=== PATIENT | female | born 1950 | race Caucasian/White ===

== ENCOUNTER → 2024-04-11 | Outpatient (CLI) | payer MEDICARE, BC, SELFPAY ==
[2024-04-11 09:03] LABS: Basophils # (Auto) 0.1 Thou/mm3 (0.0-0.2); Basophils % (Auto) 1 % (0-2.5); Eosinophils # (Auto) 0.3 Thou/mm3 (0.0-0.5); Eosinophils % (Auto) 4 % (0-10); Hematocrit 40.8 % (36.0-46.0); Hemoglobin 13.4 g/dL (12.0-16.0); Immature Granulocytes % (Auto) 1 % (0-0); Immature Granulocytes Auto 0.06 Thou/mm3 (0.00-0.00); Lymphocytes # (Auto) 1.8 Thou/mm3 (1.0-4.8); Lymphocytes % (Auto) 19 % (10-50); Mean Corpuscular HGB Conc 32.8 g/dl (31.0-37.0); Mean Corpuscular Hemoglobin 29.2 pg (25.0-35.0); Mean Corpuscular Volume 89 fL (80-100); Monocytes # (Auto) 0.8 Thou/mm3 (0.0-0.8); Monocytes % (Auto) 8 % (0-12); Neutrophils # (Auto) 6.4 Thou/mm3 (1.8-7.7); Neutrophils % (Auto) 67 % (37-80); Nucleated Red Blood Cell % 0 /100 WBC (0); Platelet Count 261 Thou/mm3 (140-440); RDW Standard Deviation 47.8 fL (36.4-46.3); Red Blood Count 4.59 Miln/mm3 (4.00-5.20); White Blood Count 9.5 Thou/mm3 (3.6-11.0)
[2024-04-11 09:17] LABS: Alanine Aminotransferase 22 U/L (10-49); Albumin, Serum 4.7 gm/dL (3.4-4.8); Albumin/Globulin Ratio 2.1 (1.2-2.2); Alkaline Phosphatase 55 U/L (46-116); Anion Gap 7 (7-16); Aspartate Amino Transferase 22 U/L (0-34); BUN/Creatinine Ratio 21 Ratio (12-20); Bilirubin,Total 1.1 mg/dL (0.3-1.2); Blood Urea Nitrogen 19 mg/dL (9-23); Calcium 9.7 mg/dL (8.3-10.6); Calcium (Corrected) 9.7 mg/dL (8.5-10.1); Carbon Dioxide 29.1 mMol/L (20.0-31.0); Cardiac Risk Estimate 3.2 RATIO (3.7-5.6); Chloride 101 mMol/L (98-107); Cholesterol 165 mg/dL (132-200); Creatinine (Component) 0.9 mg/dL (0.6-1.3); Globulin 2.2 gm/dL (2.3-3.5); Glucose 101 mg/dL (74-106); HDL Cholesterol 52 mg/dL (40-60); LDL Cholesterol,Calculated 93 mg/dL (0-130); Osmolality,Calculated 276 (275-295); Potassium 4.1 mMol/L (3.4-5.1); Sodium 137 mMol/L (136-145); Total Protein 6.9 gm/dL (5.7-8.2); Triglycerides 102 mg/dL (30-150); eGFR > 60 See Note
[2024-04-11 09:55] LABS: Collection Type, Urine Clean Catch
[2024-04-11 10:12] LABS: Bilirubin,Urine Negative (Negative); Blood,Urine Negative (Negative); Clarity,Urine Clear (Clear/Hazy); Color,Urine Yellow (Lt Yel-Yel); Glucose, Urine Negative (Negative); Ketones,Urine Negative (Negative); Leukocyte Esterase,Urine Negative (Negative); Nitrite,Urine Negative (Negative); Protein,Urine Negative (Neg - Trace); RBC,Urine 2 /hpf (0-3); Specific Gravity,Urine 1.013 (1.001-1.035); Squamous Epithelial Cell,Urine < 1 /hpf (0-5); Urobilinogen,Urine Negative mg/dL (0.0-1.0); WBC,Urine 1 /hpf (0-5)
== END | disposition home or self-care (01) ==
PROVIDERS: PCP Internal Medicine Cardiovascular Disease; Referring Provider Internal Medicine; Visit Provider Internal Medicine
DX: I10 Essential (primary) hypertension (principal); E78.5 Hyperlipidemia, unspecified
CPT/HCPCS: 36415; 80053; 80061; 81001; 85025

== ENCOUNTER → 2024-04-12 | Outpatient (CLI) | payer MEDICARE, BC, SELFPAY ==
--- NOTE | 2024-04-12 14:00 | XR_ITS ---
Examination: Screening digital mammography, bilateral Computer aided detection 3-D breast Tomosynthesis, bilateral Date and time of exam: April 12, 2024 1412 hours Compared to mammograms dating to May 23, 2012 Indication: Screening Technique: Nonmagnified MLO, CC views of the breasts to been obtained, reconstructed from 3-D Tomosynthesis images. R2 computer aided detection program utilized for evaluation of suspicious masses and/or abnormal calcifications. 3-D Tomosynthesis images obtained. Findings: Scattered areas of fibroglandular density Benign calcifications No interval suspicious masses Impression: BI-RADS category II: Benign Findings. Recommend 1 year follow-up mammogram.
--- NOTE | 2024-04-12 14:20 | XR_ITS ---
Examination: Bone densitometry Date and time of exam:April 12, 2024 at 1425 hours INDICATIONS: Menopause age 52, family history mother hip fracture, personal history osteopenia Technique: Lumbar spine and hip total bone mineralization values of an calculated. Peak reference and age match control results have been displayed. Findings: Lumbar spine total bone mineralization is1.312 gm/cm2. This is 2.4 standard deviations above peak reference. This is 4.8 standard deviations above age-matched controls. Hip total bone mineralization is 0.820 gm/cm2 This is 1.0 standard deviations below peak reference. This is 0.7 standard deviations above age-matched controls Impression: There is normal mineralization based on lumbar spine measurements. There is normal mineralization based on hip measurements Lumbar mineralization is increase 7.3% compared with April 29, 2020 Hip mineralization is increased 4.3% compared with April 29, 2020
== END | disposition home or self-care (01) ==
LOC: CDIM 14:03
PROVIDERS: Referring Provider Internal Medicine; Visit Provider Internal Medicine
DX: Z12.31 Encounter for screening mammogram for malignant neoplasm of breast (principal); R92.323 Mammographic fibroglandular density, bilateral breasts; R92.1 Mammographic calcification found on diagnostic imaging of breast; M81.0 Age-related osteoporosis without current pathological fracture
CPT/HCPCS: 77063; 77067; 77080

== ENCOUNTER 2024-06-19 07:58 | Emergency (ER) | payer MEDICARE, BC, SELFPAY ==
[2024-06-19 07:59] VITALS: BMI 33.8
--- NOTE | 2024-06-19 08:03 | EKG_ITS ---
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
[2024-06-19 08:14] VITALS: BP 155/80; PULSE 112; RESP 19; TEMP 36.7; O2SAT 95
[2024-06-19 08:15] VITALS: BMI 33.6
--- NOTE | 2024-06-19 08:16 | XR_ITS ---
Examination: AP chest single view TECHNIQUE: Sitting AP portable chest single view Exam date and time: June 19, 20242030 hours INDICATIONS: Onset chest pain today. FINDINGS: Prosthetic aortic valve No significant cardiac enlargement Mild vascular congestion Accentuation basilar bronchovascular markings No lobar pneumonia Prominent osteopenia IMPRESSION: Bronchitis pattern Mild vascular congestion
--- NOTE | 2024-06-19 08:34 | PD.EDADULT ---
ED General RME/HPI General Chief complaint: General Adult/Misc Complain Stated complaint: HIGH SHAINA B/P SINCE YESTERDAY Time Seen by Provider: 06/19/24 09:10 Arrival date/time: 06/19/24 07:58 RME / HPI RME / HPI narrative: Patient is a 74-year-old female with past medical history of aortic valve replacement, afib on warfarin, hypertension, hyperlipidemia, JONH, asthma, and COPD who presents to the ED on 06/19/2024 with a chief complaint of shakiness starting yesterday and also this morning. She has never had a prior episode of this before. Patient follows with Dr. Palma for her warfarin checks and last Wednesday on 06/12 her INR was 1.9, so she was taking an increased dose of warfarin for the past week and felt that her blood was too thin. She was told today that her INR was now 3.2 so she did not take a dose of warfarin yet. Last dose was 5 mg yesterday. Patient otherwise is denying any chest pain, shortness of breath, fever, chills, sweats, nausea, vomiting, or urinary symptoms. At the time of main ED evaluation patient states her shakiness is already resolving. complaint: shakiness Onset (ago): day(s) Consistency: now resolved Related Data Home Medications ?Medication ?Instructions ?Recorded ?Confirmed ezetimibe 10 mg-simvastatin 20 mg 1 tab PO HS 05/26/22 05/26/22 tablet furosemide 40 mg tablet 40 mg PO QDAY 05/26/22 05/26/22 meclizine 25 mg tablet 25 mg PO HS 05/26/22 05/26/22 metoprolol succinate 100 mg 100 mg PO QDAY 05/26/22 05/26/22 tablet,extended release 24 hr potassium chloride 10 mEq 10 meq PO QDAY 05/26/22 05/26/22 tablet,extended release(part/cryst) warfarin 5 mg tablet 5 mg PO QDAY 05/26/22 05/26/22 aspirin 81 mg capsule 81 mg PO DAILY 05/27/22 05/27/22 Allergies Allergy/AdvReac Type Severity Reaction Status Date / Time adhesive tape Allergy Severe Rash Verified 06/19/24 08:01 propoxyphene Allergy Severe Rash Verified 06/19/24 08:01 Past Medical History Past Medical History Comments PMH COMMENT: Past Medical History: Aortic valve replacement, afib on warfarin, hypertension, hyperlipidemia, JONH, asthma, and COPD Family History: Noncontributory Surgical History: Aortic valve replacement, right knee replacement, right shoulder surgery Social History: Denies history of smoking, denies current alcohol use, denies recreational drug use Current Medications: Furosemide 40 mg qday, metoprolol succinate 100 mg qday, ezetimibe-simvastatin, meclizine 25 mg HS, potassium chloride 10 mEq qday, daily nebulizer, albuterol (Source: Patient medication list) Allergies: Propoxyphene, adhesive tape ED Exam Narrative Physical exam: Physical Exam General: Awake and in no acute distress. Conversational and non-toxic appearing. HEENT: Normocephalic, atraumatic, mucous membranes moist. Chronically disconjugated gaze. Heart: Regular rate and rhythm, no murmurs. Lungs: Clear to auscultation with no wheezing or crackles. Abdomen: Soft, nondistended, nontender, positive bowel sounds. ?No guarding or rebound tenderness. Neurologic: Alert and oriented x3, no gross neurological deficit, and patient able to move all 4 extremities. Extremities: No edema. Skin: Left medial ankle with nonblanching nonraised macular erythematous rash. Course Quality Measures none Orders Category Date Time Status Cell Biologist NOW Care 06/19/24 08:16 Completed EKG (ED ONLY) *Do not use* NOW Care 06/19/24 08:[address] head/brain wo con Stat Exams 06/19/24 10:34 Completed EKG (ED Only) Stat Exams 06/19/24 08:03 Draft XR chest 1V portable Stat Exams 06/19/24 08:16 Completed B-Type Natriuretic Peptide Stat Lab 06/19/24 08:50 Completed CBC Stat Lab 06/19/24 08:50 Completed Comprehensive Metabolic Panel Stat Lab 06/19/24 08:50 Completed Magnesium Stat Lab 06/19/24 08:50 Completed Partial Thromboplastin Time Stat Lab 06/19/24 08:50 Completed Prothrombin Time with INR Stat Lab 06/19/24 08:50 Completed Troponin I Stat Lab 06/19/24 08:50 Completed Vital Signs Vital signs: Vital Signs Temperature 98.1 F 06/19/24 08:14 Pulse Rate 112 H 06/19/24 08:14 Respiratory Rate 19 06/19/24 08:14 Blood Pressure 155/80 H 06/19/24 08:14 Pulse Oximetry (%) 95 06/19/24 08:14 Oxygen Delivery Method Room Air 06/19/24 08:14 Procedures -ED EKG Interpretation #1: Date of EK06/19/24 Time of EK:11 Rate: 105 Interpretation: Interpreted by me EKG Impression: Normal sinus rhythm and No acute ST-T changes MDM Patient data External records reviewed:: [facility] previous records Clinical information provided by:: patient Social determinants that could affect healthcare access:: none Patient has the following chronic illnesses:: As above How is presenting disease/condition affected by chronic disease/condition?: uneffected by Evaluation data The following diagnostics were reviewed and interpreted by me:: lab results, radiology exam(s) and EKG tracing(s) Lab and/or radiology exams considered but not ordered:: Ordered Interpretation Summary: INR is high at 3.2. Patient will need to continue holding warfarin for today. Contacted Dr. Palma's office regarding finding. They reported will follow up with patient. Medications Medications considered but not ordered:: None Medication administrations:: None Consultations Consultation(s) initiated? (list below): No Diagnosis Differential Diagnosis ED Complaint MDM: Infectious illness, low BP, orthostasis, shivering due to cold temperature Most likely diagnosis given after review of the tests above:: Shivering Admission Indicated Admission indicated?: not indicated Explain why admission is indicated or not indicated:: Patient stable for discharge home Admission Request Was there a request for admission?: No Disposition Plan Disposition Plan: Discharge Discharge Attestation Discharge Attestation: The patient and all family members were given an opportunity to ask questions and understood the discharge instructions. Discharge instructions specifically effects, indications for sooner follow up or return to the emergency department, and the expected course of current diagnosis. Patient condition: Stable Medical Decision Making MDM Narrative MDM Narrative: Patient presented with a chief complaint of isolated shaking/shivering without any other symptoms. Temperature on vital signs is normal. Lab studies including CBC, CMP, troponin within normal limits. BNP is mildly elevated at 161. No acute signs of heart failure exacerbation. PT is elevated at 32.5, INR is elevated at 3.2, APTT is elevated at 36.5. CT head without contrast is ordered to rule out possible brain bleed secondary to elevated warfarin level. CT is negative for acute bleed. Patient was stable to be discharged, instructed to hold warfarin for today. Called Dr. Palma's office regarding INR at 14:30, they will follow up with patient regarding resuming warfarin recommendations. Differential Diagnosis Differential Diagnosis: Infectious illness, low BP, orthostasis, shivering due to cold temperature Lab Data 06/19/24 08:50 06/19/24 08:50 Labs: Lab Results 06/19/24 Range/Units 08:50 WBC 6.8 (3.6-11.0) Thou/mm3 RBC 4.49 (4.00-5.20) Miln/mm3 Hgb 13.3 (12.0-16.0) g/dL Hct 40.0 (36.0-46.0) % MCV 89 (80-100) fL MCH 29.6 (25.0-35.0) pg MCHC 33.3 (31.0-37.0) g/dl RDW Std Deviation 44.4 (36.4-46.3) fL Plt Count 247 (140-440) Thou/mm3 Neut % (Auto) 73 (37-80) % Lymph % (Auto) 18 (10-50) % [place] % (Auto) 6 (0-12) % Eos % (Auto) 2 (0-10) % Baso % (Auto) 1 (0-2.5) % Neut # (Auto) 5.0 (1.8-7.7) Thou/mm3 Lymph # (Auto) 1.2 (1.0-4.8) Thou/mm3 [place] # (Auto) 0.4 (0.0-0.8) Thou/mm3 Eos # (Auto) 0.1 (0.0-0.5) Thou/mm3 Baso # (Auto) 0.1 (0.0-0.2) Thou/mm3 Immature Gran # (Auto) 0.03 H (0.00-0.00) Thou/mm3 Absolute Nucleated RBC 0.00 (0.00-0.00) Thou/mm3 Immature Gran % 0 (0-0) % Nucleated RBC % 0 (0) /100 WBC PT 32.5 H* (9.0-12.2) Seconds INR 3.2 H (0.9-1.3) APTT 36.5 H (22.0-36.0) Seconds Sodium 140 (136-145) mMol/L Potassium 3.5 (3.4-5.1) mMol/L Chloride 105 (98-107) mMol/L Carbon Dioxide 23.6 (20.0-31.0) mMol/L Anion Gap 11 (7-16) BUN 17 (9-23) mg/dL Creatinine 0.9 (0.6-1.3) mg/dL Estim Creat Clear Calc 54.9 L (>60) mL/min eGFR > 60 (60 - ) See Note BUN/Creatinine Ratio 19 (12-20) Ratio Glucose 164 H (74-106) mg/dL Calculated Osmolality 284 (275-295) Calcium 10.0 (8.3-10.6) mg/dL Corrected Calcium 10.0 (8.5-10.1) mg/dL Magnesium 2.0 (1.6-2.6) mg/dL Total Bilirubin 0.7 (0.3-1.2) mg/dL AST 26 (0-34) U/L ALT 18 (10-49) U/L Alkaline Phosphatase 53 (46-116) U/L Troponin I < 0.020 (0.0-0.045) ng/mL B-Natriuretic Peptide 161 H (0-100) pg/mL Total Protein 7.1 (5.7-8.2) gm/dL Albumin 4.8 (3.4-4.8) gm/dL Globulin 2.3 (2.3-3.5) gm/dL Albumin/Globulin Ratio 2.1 (1.2-2.2) Discharge Plan Plan Patient Disposition: HOME (Self Care) Patient condition on transfer: Stable Prescriptions/Referrals Prescriptions/Med Rec: No Action furosemide 40 mg tablet 40 mg PO QDAY Patient Comments: TAKE 1 TABLET BY MOUTH EVERY DAY metoprolol succinate 100 mg tablet extended release 24 hr 100 mg PO QDAY Patient Comments: TAKE 1 TABLET BY MOUTH EVERY DAY meclizine 25 mg tablet 25 mg PO HS warfarin 5 mg tablet 5 mg PO QDAY potassium chloride 10 mEq tablet,ER particles/crystals 10 meq PO QDAY Patient Comments: TAKE 1 TABLET BY MOUTH EVERY DAY IN THE MORNING ezetimibe-simvastatin 10-20 mg tablet 1 tab PO HS Patient Comments: TAKE 1 TABLET BY MOUTH EVERY DAY aspirin 81 mg Capsule 81 mg PO DAILY Referrals: Emmy Newell MD [Primary Care Provider] - In 1 week Problem List Clinical Impression: Shivers Patient/Caregiver Discharge Instructions Education Materials: What to Know When Taking?Warfarin Additional Instructions: Continue to hold warfarin 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 Return to the ED if symptoms worsen or recur. Print Language: Kazakh Stand Alone Forms: Estella Award Info., Patient Portal Info Letter
[2024-06-19 09:22] LABS: Basophils # (Auto) 0.1 Thou/mm3 (0.0-0.2); Basophils % (Auto) 1 % (0-2.5); Eosinophils # (Auto) 0.1 Thou/mm3 (0.0-0.5); Eosinophils % (Auto) 2 % (0-10); Hemoglobin 13.3 g/dL (12.0-16.0); Immature Granulocytes % (Auto) 0 % (0-0); Immature Granulocytes Auto 0.03 Thou/mm3 (0.00-0.00); Lymphocytes # (Auto) 1.2 Thou/mm3 (1.0-4.8); Lymphocytes % (Auto) 18 % (10-50); Mean Corpuscular HGB Conc 33.3 g/dl (31.0-37.0); Mean Corpuscular Hemoglobin 29.6 pg (25.0-35.0); Mean Corpuscular Volume 89 fL (80-100); Monocytes # (Auto) 0.4 Thou/mm3 (0.0-0.8); Monocytes % (Auto) 6 % (0-12); Neutrophils % (Auto) 73 % (37-80); Nucleated Red Blood Cell % 0 /100 WBC (0); Platelet Count 247 Thou/mm3 (140-440); RDW Standard Deviation 44.4 fL (36.4-46.3); Red Blood Count 4.49 Miln/mm3 (4.00-5.20); White Blood Count 6.8 Thou/mm3 (3.6-11.0)
[2024-06-19 09:42] LABS: B-Type Natriuretic Peptide 161 pg/mL (0-100)
[2024-06-19 09:44] LABS: INR 3.2 (0.9-1.3); Partial Thromboplastin Time 36.5 Seconds (22.0-36.0)
[2024-06-19 09:47] LABS: Alanine Aminotransferase 18 U/L (10-49); Albumin, Serum 4.8 gm/dL (3.4-4.8); Albumin/Globulin Ratio 2.1 (1.2-2.2); Alkaline Phosphatase 53 U/L (46-116); Anion Gap 11 (7-16); Aspartate Amino Transferase 26 U/L (0-34); BUN/Creatinine Ratio 19 Ratio (12-20); Bilirubin,Total 0.7 mg/dL (0.3-1.2); Blood Urea Nitrogen 17 mg/dL (9-23); Carbon Dioxide 23.6 mMol/L (20.0-31.0); Chloride 105 mMol/L (98-107); Creatinine (Component) 0.9 mg/dL (0.6-1.3); Estimated Creatinine Clearance 54.9 mL/min (>60); Globulin 2.3 gm/dL (2.3-3.5); Glucose 164 mg/dL (74-106); Osmolality,Calculated 284 (275-295); Potassium 3.5 mMol/L (3.4-5.1); Sodium 140 mMol/L (136-145); Total Protein 7.1 gm/dL (5.7-8.2); Troponin I < 0.020 ng/mL (0.0-0.045); eGFR > 60 See Note
[2024-06-19 10:26] LABS: Prothrombin Time 32.5 Seconds (9.0-12.2)
--- NOTE | 2024-06-19 10:34 | XR_ITS ---
Examination: CT brain head without contrast. 2-D sagittal coronal reconstructions Date and time of exam:June 19, 2024 1136 hours INDICATIONS: Tremors high blood pressure today CTDI: vol (mGy):54.8 DLP: (mGycm):1088 Technique: Multiple CT axial sections of the brain have been obtained, 5 mm slice thickness. Contrast has not been administered. 2-D sagittal, coronal reconstructions have been obtained Low dose protocols were performed. One or more of the following dose reduction techniques were used; automated exposure control, adjustment of the mA and/or KV according to patient size, use of iterative reconstruction technique. Findings: No significant ventricular enlargement. 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 No mass effect or midline shift Basal cisterns are not remarkable. Fourth ventricle is midline. Cranial vault intact. Impression: Negative for acute hemorrhage, mass effect or midline shift Advise clinical correlation and follow-up accordingly
[2024-06-19 10:41] VITALS: BP 143/70; PULSE 74; RESP 16; TEMP 36.6; O2SAT 95
--- NOTE | 2024-06-19 11:38 | PC.NURSE ---
Patient to CT via wheelchair.
[2024-06-19 12:36] VITALS: PULSE 70; RESP 12; TEMP 36.7; O2SAT 97
== END 2024-06-19 12:36 | disposition home or self-care (01) ==
PROVIDERS: Nurse Practitioner Primary Care; Emergency Provider Emergency Medicine; PCP Internal Medicine
DX: R68.83 Chills (without fever) (principal); R79.1 Abnormal coagulation profile; I10 Essential (primary) hypertension; J44.89 Other specified chronic obstructive pulmonary disease; I48.91 Unspecified atrial fibrillation; Z95.2 Presence of prosthetic heart valve; Z96.651 Presence of right artificial knee joint; Z79.899 Other long term (current) drug therapy; Z91.048 Other nonmedicinal substance allergy status
CPT/HCPCS: 36415; 70450; 71045; 80053; 83735; 83880; 84484; 85025; 85610; 85730; 93005; 99284

== ENCOUNTER → 2024-06-22 | Outpatient (CLI) | payer MEDICARE, BC, SELFPAY ==
--- NOTE | 2024-06-22 14:52 | XR_ITS ---
EXAMINATION: Ankle, right 3 views . Technique: Ankle AP, oblique, lateral 3 views Date and time of exam: June 22, 2024 1459 hours INDICATIONS: Ankle pain beginning one month ago. FINDINGS: Prominent osteopenia Lateral malleolar soft tissue swelling Moderate narrowing tibiotalar joint 6 mm plantar 5 mm posterior bony calcaneal spurs IMPRESSION: Moderate osteoarthritis tibiotalar joint
== END | disposition home or self-care (01) ==
LOC: SDIM 14:40
PROVIDERS: PCP Internal Medicine; Referring Provider Internal Medicine Cardiovascular Disease; Visit Provider Internal Medicine Cardiovascular Disease
DX: M19.071 Primary osteoarthritis, right ankle and foot (principal)
CPT/HCPCS: 73610

== ENCOUNTER → 2024-09-13 | Outpatient (CLI) | payer MEDICARE, BC, SELFPAY ==
[2024-09-13 07:57] LABS: Collection Type, Urine Clean Catch
[2024-09-13 08:36] LABS: Bilirubin,Urine Negative (Negative); Blood,Urine Negative (Negative); Clarity,Urine Turbid (Clear/Hazy); Color,Urine Yellow (Lt Yel-Yel); Glucose, Urine Negative (Negative); Ketones,Urine Negative (Negative); Leukocyte Esterase,Urine Positive (Negative); Nitrite,Urine Negative (Negative); Protein,Urine Negative (Neg - Trace); RBC,Urine 3 /hpf (0-3); Specific Gravity,Urine 1.011 (1.001-1.035); Squamous Epithelial Cell,Urine 1 /hpf (0-5); Urobilinogen,Urine Negative mg/dL (0.0-1.0); WBC,Urine 2 /hpf (0-5)
[2024-09-13 08:41] LABS: Basophils # (Auto) 0.1 Thou/mm3 (0.0-0.2); Basophils % (Auto) 1 % (0-2.5); Eosinophils # (Auto) 0.3 Thou/mm3 (0.0-0.5); Eosinophils % (Auto) 3 % (0-10); Hematocrit 40.3 % (36.0-46.0); Immature Granulocytes % (Auto) 1 % (0-0); Immature Granulocytes Auto 0.07 Thou/mm3 (0.00-0.00); Lymphocytes # (Auto) 1.9 Thou/mm3 (1.0-4.8); Lymphocytes % (Auto) 19 % (10-50); Mean Corpuscular HGB Conc 32.3 g/dl (31.0-37.0); Mean Corpuscular Hemoglobin 29.9 pg (25.0-35.0); Mean Corpuscular Volume 93 fL (80-100); Monocytes # (Auto) 0.7 Thou/mm3 (0.0-0.8); Monocytes % (Auto) 7 % (0-12); Neutrophils % (Auto) 70 % (37-80); Nucleated Red Blood Cell % 0 /100 WBC (0); Platelet Count 235 Thou/mm3 (140-440); RDW Standard Deviation 46.3 fL (36.4-46.3); Red Blood Count 4.35 Miln/mm3 (4.00-5.20); White Blood Count 10.1 Thou/mm3 (3.6-11.0)
[2024-09-13 08:52] LABS: Vitamin B12 1192 pg/mL (211-911); Vitamin D 25 Hydroxy Total 61.5 ng/mL (7.3-40.2)
[2024-09-13 08:59] LABS: Alanine Aminotransferase 20 U/L (10-49); Albumin, Serum 4.5 gm/dL (3.4-4.8); Alkaline Phosphatase 48 U/L (46-116); Anion Gap 8 (7-16); Aspartate Amino Transferase 23 U/L (0-34); BUN/Creatinine Ratio 15 Ratio (12-20); Bilirubin,Total 0.8 mg/dL (0.3-1.2); Blood Urea Nitrogen 15 mg/dL (9-23); Calcium 9.2 mg/dL (8.3-10.6); Calcium (Corrected) 9.2 mg/dL (8.5-10.1); Carbon Dioxide 26.1 mMol/L (20.0-31.0); Cardiac Risk Estimate 2.8 RATIO (3.7-5.6); Chloride 106 mMol/L (98-107); Cholesterol 174 mg/dL (132-200); Globulin 2.3 gm/dL (2.3-3.5); Glucose 108 mg/dL (74-106); HDL Cholesterol 63 mg/dL (40-60); LDL Cholesterol,Calculated 96 mg/dL (0-130); Osmolality,Calculated 281 (275-295); Potassium 3.8 mMol/L (3.4-5.1); Sodium 140 mMol/L (136-145); Thyroid Stimulating Hormone 2.47 uIU/mL (0.55-4.78); Total Protein 6.8 gm/dL (5.7-8.2); Triglycerides 76 mg/dL (30-150); eGFR 59 See Note
== END | disposition home or self-care (01) ==
LOC: COPL 06:43
PROVIDERS: PCP Internal Medicine; Referring Provider Internal Medicine; Visit Provider Internal Medicine Cardiovascular Disease
DX: Z00.00 Encounter for general adult medical examination without abnormal findings (principal); I10 Essential (primary) hypertension; E78.5 Hyperlipidemia, unspecified; D51.9 Vitamin B12 deficiency anemia, unspecified; E55.9 Vitamin D deficiency, unspecified
CPT/HCPCS: 36415; 80053; 80061; 81001; 82306; 82607; 84443; 85025

== ENCOUNTER → 2025-02-14 | Outpatient (CLI) | payer MEDICARE, BC, SELFPAY ==
[2025-02-14 08:43] LABS: Basophils # (Auto) 0.1 Thou/mm3 (0.0-0.2); Basophils % (Auto) 1 % (0-2.5); Eosinophils # (Auto) 0.3 Thou/mm3 (0.0-0.5); Eosinophils % (Auto) 4 % (0-10); Hematocrit 40.2 % (36.0-46.0); Hemoglobin 13.1 g/dL (12.0-16.0); Immature Granulocytes Auto 0.07 Thou/mm3 (0.00-0.00); Lymphocytes # (Auto) 2.3 Thou/mm3 (1.0-4.8); Lymphocytes % (Auto) 26 % (10-50); Mean Corpuscular HGB Conc 32.6 g/dl (31.0-37.0); Mean Corpuscular Hemoglobin 30.3 pg (25.0-35.0); Mean Corpuscular Volume 93 fL (80-100); Monocytes # (Auto) 0.8 Thou/mm3 (0.0-0.8); Monocytes % (Auto) 9 % (0-12); Neutrophils # (Auto) 5.2 Thou/mm3 (1.8-7.7); Neutrophils % (Auto) 59 % (37-80); Nucleated Red Blood Cell # 0.00 Thou/mm3 (0.00-0.00); Nucleated Red Blood Cell % 0 /100 WBC (0); Platelet Count 255 Thou/mm3 (140-440); RDW Standard Deviation 45.4 fL (36.4-46.3); Red Blood Count 4.33 Miln/mm3 (4.00-5.20); White Blood Count 8.9 Thou/mm3 (3.6-11.0)
[2025-02-14 09:04] LABS: Alanine Aminotransferase 20 U/L (10-49); Albumin, Serum 4.4 gm/dL (3.4-4.8); Albumin/Globulin Ratio 2.0 (1.2-2.2); Alkaline Phosphatase 55 U/L (46-116); Anion Gap 8 (7-16); Aspartate Amino Transferase 24 U/L (0-34); BUN/Creatinine Ratio 14 Ratio (12-20); Bilirubin,Total 0.7 mg/dL (0.3-1.2); Blood Urea Nitrogen 13 mg/dL (9-23); Calcium 9.6 mg/dL (8.3-10.6); Calcium (Corrected) 9.6 mg/dL (8.5-10.1); Carbon Dioxide 30.3 mMol/L (20.0-31.0); Cardiac Risk Estimate 2.8 RATIO (3.7-5.6); Chloride 104 mMol/L (98-107); Cholesterol 171 mg/dL (132-200); Creatinine (Component) 0.9 mg/dL (0.6-1.3); Globulin 2.2 gm/dL (2.3-3.5); Glucose 106 mg/dL (74-106); HDL Cholesterol 62 mg/dL (40-60); LDL Cholesterol,Calculated 77 mg/dL (0-130); Osmolality,Calculated 283 (275-295); Potassium 4.1 mMol/L (3.4-5.1); Sodium 142 mMol/L (136-145); Total Protein 6.6 gm/dL (5.7-8.2); Triglycerides 160 mg/dL (30-150); eGFR > 60 See Note
== END | disposition home or self-care (01) ==
LOC: COPL 07:31
PROVIDERS: PCP Internal Medicine; Referring Provider Internal Medicine; Visit Provider Internal Medicine Cardiovascular Disease
DX: I10 Essential (primary) hypertension (principal); E78.5 Hyperlipidemia, unspecified
CPT/HCPCS: 36415; 80053; 80061; 85025